=== PATIENT | female | born 1970 | race Caucasian/White ===

== ENCOUNTER 2021-07-03 08:33 | Emergency (ER) | payer SELFPAY ==
--- NOTE | 2021-07-03 08:38 | ED.URI ---
HPI - URI/Sore Throat General Chief Complaint: Upper Respiratory Infection Stated Complaint: ear sore throat cough chest congest Time Seen by Provider: 07/03/21 08:38 Source: patient and RN notes reviewed History of Present Illness HPI Narrative: Patient is a 50-year-old female who presents the urgent care with complaints of chest congestion, wheezes, cough, sore throat and bilateral ear pain. Patient states that she had COVID approximately 2 to 3 weeks ago and she has had the continual cough since then. Patient has been using Mucinex and Aleve D. Denies of any fevers, shortness of breath or chest pain. No other acute complaints. No acute distress noted. Patient aware of the plan of care. Some parts of this dictation were generated by voice recognition software and may contain typographical and/or grammatical inaccuracies. Related Data Allergies Allergy/AdvReac Type Severity Reaction Status Date / Time No Known Allergies Allergy Verified 07/03/21 08:48 Review of Systems Review of Systems: CONSTITUTIONAL: Denies fever, chills, or sweats. EYES: Denies visual changes, redness, or discharge. ENT: Reports of sore throat and ear pain CARDIOVASCULAR: Denies chest pain, palpitations, or edema. RESPIRATORY: Reports of cough and wheezing GASTROINTESTINAL: Denies abdominal pain, nausea, vomiting, or diarrhea. GENITOURINARY: Denies dysuria or hematuria. SKIN: Denies rash or itching. MUSCULOSKELETAL: Denies back pain, joint pain, or myalgia. NEUROLOGIC: Denies headache, numbness, or weakness. All other systems reviewed are negative, except as documented in HPI. PMFSH Comments At the time of my signature, I reviewed and agree with the nursing past medical, surgical, social, and family history. There is no relevant family history pertinent to the patient complaint. Exam Narrative: GENERAL: This is a well-nourished, well-developed patient, in no apparent distress. HEAD: normocephalic, atraumatic. EYES: PERRL. Sclera clear/white. Vision is grossly intact. EARS: External ears normal, auditory canals clear and without drainage, TMs normal without perforation. Hearing grossly intact. NOSE: External nose normal with no obvious nasal discharge, nares without redness, clear to yellow rhinorrhea. THROAT: Mucous membranes moist, posterior pharynx clear. Moderate postnasal drainage NECK: Neck supple, non-tender without lymphadenopathy, masses or thyromegaly. CARDIOVASCULAR: Regular rate and rhythm without murmurs, gallops, or rubs. RESPIRATORY: Expiratory wheezes throughout increase to the left lower SKIN: warm, intact with no suspicious lesions or rash, good texture and turgor. NEURO: awake, alert, and oriented to person, place and time. There were no obvious focal neurologic abnormalities. EXTREMITIES: No clubbing, cyanosis, or edema. Course Course Level of Care: Express Care Visit Vital Signs Vital signs: Vital Signs Temperature 98.7 F 07/03/21 08:40 Pulse Rate 93 07/03/21 08:40 Respiratory Rate 20 07/03/21 08:40 Blood Pressure 155/92 H 07/03/21 08:40 Pulse Oximetry 99 07/03/21 08:40 Temperature 98.7 F 07/03/21 08:40 Pulse Rate 93 07/03/21 08:40 Respiratory Rate 20 07/03/21 08:40 Blood Pressure 155/92 H 07/03/21 08:40 Pulse Oximetry 99 07/03/21 08:40 Reviewed-patient is informed that they may have pre-hypertension or hypertension based on a blood pressure reading in the department. I recommend the patient call the primary care provider listed on their discharge instructions or a physician of their choice this week to arrange follow-up for further evaluation of possible pre-hypertension or hypertension. MDM - URI/Sore Throat MDM Narrative Medical decision making narrative: Advised the patient to complete the oral antibiotic regimen as prescribed. Complete the steroid regimen as prescribed. Use the inhaler prior to bedtime and for any wheezing or coughing fits. May continue Mucinex as needed. If you deve
[2021-07-03 08:40] VITALS: BP 155/92; PULSE 93; RESP 20; TEMP 37.1; O2SAT 99
== END 2021-07-03 08:52 | disposition home or self-care (01) ==
PROVIDERS: Emergency Provider Nurse Practitioner Family; PCP Internal Medicine
DX: J40 Bronchitis, not specified as acute or chronic (principal); Z86.16 Personal history of COVID-19; E03.9 Hypothyroidism, unspecified
CPT/HCPCS: 99213; G0463

== ENCOUNTER 2022-04-09 10:18 | Emergency (ER) | payer SELFPAY ==
[2022-04-09 10:23] VITALS: BP 139/85; PULSE 76; RESP 16; TEMP 37.1; O2SAT 100
--- NOTE | 2022-04-09 11:52 | ED.URI ---
HPI - URI/Sore Throat General Chief Complaint: Upper Respiratory Infection Stated Complaint: Sore Throat/Ear Pain Time Seen by Provider: 04/09/22 11:15 Source: patient, RN notes reviewed and old records reviewed Mode of arrival: ambulatory Limitations: no limitations History of Present Illness HPI Narrative: 51 year old female who presents to [facility] with complaints of sore throat ear pain nasal drainage since evening. Patient reports that her ears are popping she does have lots of sinus congestion facial pressure, teeth hurt with history of sinus infections. Patient states that she has not noted any cough or high fevers. 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 MD elicited complaint: sore throat, rhinorrhea, nasal congestion, sinus pain and other (ear pain) Pertinent past history: sinusitis Pain scale (0-10): 4 Treatments prior to arrival: acetaminophen Related Data Home Medications Medication Instructions Recorded Confirmed levothyroxine 175 mcg tablet 175 mcg PO DAILY 04/09/22 04/09/22 (Euthyrox) lovastatin 10 mg tablet 10 mg PO DAILY 04/09/22 04/09/22 venlafaxine 75 mg capsule,extended 75 mg PO DAILY 04/09/22 04/09/22 release 24 hr Allergies Allergy/AdvReac Type Severity Reaction Status Date / Time No Known Allergies Allergy Verified 04/09/22 10:29 Review of Systems Review of Systems: CONSTITUTIONAL: Denies malaise, chills, sweats, or fever. EYES: Denies visual changes, redness, or discharge. ENT: Reports rhinorrhea, congestion, sinus pain, otalgia and sore throat. CARDIOVASCULAR: Denies chest pain, palpitations, or edema. RESPIRATORY: Reports cough.? Denies dyspnea. GASTROINTESTINAL: Denies abdominal pain, nausea, vomiting, diarrhea SKIN: Denies rash or itching. MUSCULOSKELETAL: Denies myalgia. NEUROLOGIC:reports frontal headache. All systems reviewed & are unremarkable except as noted in HPI and below PMFSH Past Medical History Medical History (Updated 04/15/22 @ 12:28 by Sena Meier NP) Ear infection Elevated cholesterol Hypothyroid Mood swings Sinusitis Strep throat Surgical History Surgical History (Updated 04/15/22 @ 12:27 by Sena Meier NP) History of endometrial ablation History of weight loss surgery Social History Social History (Updated 04/15/22 @ 12:28 by Sena Meier NP) Smoking status: Never smoker Alcohol intake: never Substance use: never Substance use type: does not use Living arrangements: with family Gender identity (if verbalized by the patient): Female Comments At time of signature, agree with nursing past medical, surgical, social and family history. There is no relevant family history pertinent to the presenting complaint Exam Narrative: GENERAL: Well-appearing, well-nourished, and in no acute distress. HEAD: Normocephalic EYES: PERRLA, conjunctivae clear ENT: Nares clear, turbinates edematous and erythematous, clear discharge. Mucous membranes moist. TM pearly tenorio with dull light reflex bilaterally; no tragal tenderness. Oropharynx erythematous without lesions. Tonsils not enlarged and without exudate, no drooling, no hoarseness, no trismus, uvula midline.Sinus pressure facial and headache states teeth hurt even with frontal headache NECK: Supple. No lymphadenopathy CHEST: Clear to auscultation, breath sounds equal. No wheezing, rhonchi, rales, or stridor. No respiratory distress, speaks in full sentences.SAO2 100% on room air HEART: Regular rate and rhythm. No murmur heard. SKIN: Warm, dry, no rash. NEURO: Alert and oriented x3. PSYCH: Normal mood and affect Course Course Emergency Course: Patient is aware of diagnosis, understands and agrees to treatment plan.? Anticipatory guidance given.? Patient agrees to follow-up as directed and is aware of reasons to seek care at the emergency depar
== END 2022-04-09 12:15 | disposition home or self-care (01) ==
PROVIDERS: Emergency Provider Registered Nurse; PCP Internal Medicine
DX: J01.90 Acute sinusitis, unspecified (principal); E03.9 Hypothyroidism, unspecified
CPT/HCPCS: 87081; 87880; 99213; G0463